=== PATIENT | male | born 1950 | race Caucasian/White ===

== ENCOUNTER 2024-04-04 19:01 | Emergency (ER) | payer MEDICARE, OTHER | END 2024-04-04 22:16 | disposition home or self-care (01) | LOC: JD.ED 19:01 | DX: M25.561 Pain in right knee (principal); E11.9 Type 2 diabetes mellitus without complications; Z91.048 Other nonmedicinal substance allergy status; Z86.16 Personal history of COVID-19 | CPT/HCPCS: 73564-26-RT; 73564-RT; 99283 ==